=== PATIENT | male | born 1960 ===

== ENCOUNTER 2017-03-08 08:32 | Emergency (ER) | payer BC ==
--- NOTE | 2017-03-08 14:12 | UC ---
Chai James Claudia, scribed for Soumya Moffett MD on 03/08/17 at 1021 . Skin Complaint HPI - HPI Summary HPI Summary: 56 year old male presents to the [facility] with an allergic reaction to Poison [place]. Pt notes that on Tuesday he was exposed to Poison [place] and then developed a rash/ swelling to his face and right eye on Tuesday. Pt notes that he has had similar Sx about 2 years ago. He denies any alleviating or aggravating factors. He also notes that his arms, eye and face are itching. He denies any associated Sx and denies any fever. - History of Current Complaint Chief Complaint: UCSkin Time Seen by Provider: 03/08/17 10:09 Stated Complaint: SKIN ISSUE Hx Obtained From: Patient Onset/Duration: Sudden Onset Skin Exposure Onset/Duration: Days Ago - Tuesday Location: Face, Other - right eye, arms bilaterally Character: Swelling, Redness Aggravating: Nothing Alleviating: Nothing Associated Signs & Symptoms: Negative: Fever, Throat Tightening Review of Systems Constitutional: Negative - NO FEVER REPORTED Skin: Rash - redness, sweling on his face, right eye and arms bilaterally Eyes: Negative ENT: Negative Respiratory: Negative Cardiovascular: Negative Gastrointestinal: Negative Genitourinary: Negative Motor: Negative Neurovascular: Negative Musculoskeletal: Negative Neurological: Negative Psychological: Negative All Other Systems Reviewed And Are Negative: Yes PMH/Surg Hx/FS Hx/Imm Hx Previously Healthy: Yes Endocrine History Of: Denies: Diabetes, Thyroid Disease Cardiovascular History Of: Reports: Hypertension Denies: Cardiac Disorders Respiratory History Of: Denies: COPD, Asthma GI/ History Of: Denies: Ulcer - Surgical History Surgical History: Yes Surgery Procedure, Year, and Place: 06/01 ankle pinned - Family History Known Family History: Positive: Cardiac Disease - Social History Occupation: Employed Full-time Lives: With Family Alcohol Use: Occasionally Substance Use Type: None Smoking Status (MU): Never Smoked Tobacco Physical Exam Triage Information Reviewed: Yes Vital Signs: Initial Vital Signs Temp 97.6 F 03/08/17 08:37 Pulse 76 03/08/17 08:37 Resp 18 03/08/17 08:37 BP 155/91 03/08/17 08:37 Pulse Ox 99 03/08/17 08:37 - Additional Comments * Appearance: Well-Nourished * Eye Exam: Normal * ENT Exam: Normal * Neck: Normal, No adenopathy appreciated * Respiratory Exam: Normal, no dyspnea, no tachypnea, normal respiratory rate * Chest non-tender, Lungs clear, Normal breath sounds, No respiratory distress, No accessory muscle use * Cardiovascular Exam: Normal * Cardiovascular: Heart rate regular, good general skin color, good capillary refill * RRR, No Murmur, Pulses Normal - sitting up. heart rate correlates w left radial pulse (if relevant), Brisk Capillary Refill * Abdominal Exam: Normal * Abdomen Description: Nontender, No Organomegaly, Soft * Bowel Sounds: Present * Musculoskeletal Exam: Normal * Musculoskeletal: Strength Intact * Neurological Exam: Normal: nonfocal, grossly intact. * Psychological Exam: Normal: conversing easily and appropriately * Skin Exam: scattered orticaria and demanographia Course/Dx - Course Course Of Treatment: No new problems in CCC. Reviewed instructions and need for f/u w pcp. Questions answered to the best of my ability. - Diagnoses Provider Diagnoses: acute allergic reaction. contact dermatitis Discharge - Discharge Plan Condition: Stable Disposition: HOME Prescriptions: Diphenhydramine HCl [Benadryl Allergy 25 MG CAP] 25 mg PO Q6H PRN #30 cap PRN Reason: Allergy Symptoms Famotidine TAB* [Pepcid 20 MG TAB*] 20 mg PO DAILY PRN #20 tab PRN Reason: Allergy Symptoms Olopatadine 0.1% OPHTH (NF) [Patanol 0.1% OPHTH (NF)] 1 drop BOTH EYES BID PRN # 1 btl PRN Reason: Allergy Symptoms predniSONE TAB* [Deltasone TAB*] 10 mg PO DAILY #20 tab Patient Education Materials: Contact Dermatitis (ED), Allergies (ED) Referrals: Non Staff,Doctor [Primary Care Provider] - Additional Instructions: Avoid hot showers, aspirin containing products, red wine and beer. Benadryl is a good antihistamine option but is drowsy. For non-drowsy look for Claritin. Follow up with your primary care physician in the next couple week for blood pressure recheck. Seek medical attention for worse or new problems. The documentation as recorded by the Chai leggett Claudia accurately reflects the service I personally performed and the decisions made by me, Soumya Moffett MD.
== END 2017-03-08 10:52 | disposition home or self-care (01) ==
LOC: UCEAST 08:32
DX: L23.9 Allergic contact dermatitis, unspecified cause (principal)
CPT/HCPCS: 99202; G0463